=== PATIENT | male | born 1955 | race Caucasian/White ===

== ENCOUNTER 2021-11-15 14:27 | Outpatient (CLI) | payer BC, MEDICARE, SELFPAY ==
[2021-11-15 18:10] LABS: SARS PCR* POSITIVE SARS-CoV-2 (Negative)
== END 2021-11-15 14:28 | disposition home or self-care (01) ==
LOC: LONREF 14:28
PROVIDERS: PCP Family Medicine; Visit Provider Nurse Practitioner Family
DX: U07.1 COVID-19 (principal); R09.81 Nasal congestion
CPT/HCPCS: 87635

== ENCOUNTER 2022-02-01 10:19 | Emergency (ER) | payer BC, SELFPAY ==
[2022-02-01 10:33] VITALS: BP 168/81; PULSE 63; RESP 18; TEMP 36.5; O2SAT 97; BMI 30.1
--- NOTE | 2022-02-01 11:19 | ED_ITS ---
HPI - Back Pain/Injury General Chief Complaint: Back Injury/Pain Stated Complaint: Low back pain 67-year-old man Time Seen by Provider: 02/01/22 11:17 History of Present Illness HPI Narrative: 67-year-old man presenting to the emergency department with complaint of increasing low back and right leg pain. Seems to have started about 2 weeks ago and has just been getting worse. Over the last 3 nights really has been having a hard time sleeping. Is not actually having any weakness although it may be related to pain he admits. Still very active physically in was 2 weeks ago cutting wood or some other act to VD is that he thinks might have been related but does not recall a specific injury at that time but it seemed to build after that. He describes a deep ache with initial onset also large area likely to ?ball of fire? in his right thigh and then numbness from the knee down. The numbness has resolved. He says his whole foot seemed to be involved. The deep ache persists through the buttock and posterior thigh and then I think somewhat in the outer lower leg. He also has some low back pain. Did not historically have a problem with back pain. From last clinic note-- Active Problems Medical Problems: Clostridium difficile colitis ASCVD (arteriosclerotic cardiovascular disease) Hypothyroidism Hyperlipidemia Diverticulosis COPD (chronic obstructive pulmonary disease) Adenomatous colon polyp Memory changes COPD exacerbation COPD with exacerbation Heart palpitations Surgical Problems: S/P CABG x 3 S/P left knee surgery S/P right knee arthroscopy S/P bilateral inguinal hernia repair Achilles rupture, left History of colonoscopy Colonoscopy completed on 04/15/18, Repeat in 3 years, Next due 04/15/2021 Related Data Home Medications Medication Instructions Recorded Confirmed atorvastatin 40 mg tablet 40 mg PO QPM 11/15/21 11/15/21 levothyroxine 75 mcg tablet 75 mcg PO QDAY 11/15/21 11/15/21 metoprolol succinate 25 mg 12.5 mg PO QDAY 11/15/21 11/15/21 tablet,extended release 24 hr Previous Rx's Medication Instructions Recorded nirmatrelvir 300 mg (150 mg See Rx Instructions PO .COMPLEX 11/15/21 x2)-ritonavir 100 mg tablet,dose #30 tabs pack(EUA) prednisone 20 mg tablet 40 mg PO QDAY #10 tabs 11/15/21 Allergies Allergy/AdvReac Type Severity Reaction Status Date / Time No Known Drug Allergies Allergy Verified 11/15/21 14:16 Review of Systems Status of ROS: Reports: 6 or more systems reviewed and unremarkable except as noted in History and below [facility] Social History Smoking Status: Former smoker Do you use any of these nicotine containing products: None Second hand tobacco smoke exposure: No How often do you have a drink containing alcohol: never How often do you have six or more drinks on one occasion: Never AUDIT-C Alcohol total score: 0 Non-prescribed substance use: denies use Exam Narrative: Exam Narrative: New pleasant, jovial. Clearly a little uncomfortable seated in a chair though avoiding sitting on his right buttock. Skin is warm and dry, no evidence of rash. No swelling appreciated. He transitions gingerly to a standing position. Examination of the back does reveal some right sacroiliac area tenderness. At times when he was seated he seems preferring to cross his right leg over his left as if that offers a little release. There was actually with further pressure on the right SI joint some improvement in symptoms there. Sensation intact. Is sore to palpation in the right buttock as well. Positive straight leg raise on the right. No discrete weakness appreciated with intact reflexes. Const: Vital Signs, click to edit/add: Vital Signs - 24 hr 02/01/22 10:33 Temperature 97.7 F Pulse Rate [Right Pulse Oximeter] 63 Respiratory Rate 18 Blood Pressure [Ri ght Upper Arm] 168/81 H Pulse Oximetry 97 Oxygen Delivery Me thod Room Air Documenting provider has reviewed patient's vital signs: yes Course Vital Signs Vital signs: Initial Vital Signs Temperature 97.7 F 02/01/22 10:33 Temperature Source Temporal Artery Scan 02/01/22 10:33 Pulse Rate 63 02/01/22 10:33 Respiratory Rate 18 02/01/22 10:33 Blood Pressure 168/81 H 02/01/22 10:33 Blood Pressure Mean 110 02/01/22 10:33 Blood Pressure Position Sitting 02/01/22 10:33 Pulse Oximetry 97 02/01/22 10:33 Oxygen Delivery Method 02/01/22 10:33 Vital Signs Temperature 97.7 F 02/01/22 10:33 Pulse Rate 63 02/01/22 10:33 Respiratory Rate 18 02/01/22 10:33 Blood Pressure 168/81 H 02/01/22 10:33 Pulse Oximetry 97 02/01/22 10:33 Oxygen Delivery Method 02/01/22 10:33 Temperature 97.7 F 02/01/22 10:33 Pulse Rate 63 02/01/22 10:33 Respiratory Rate 18 02/01/22 10:33 Blood Pressure 168/81 H 02/01/22 10:33 Pulse Oximetry 97 02/01/22 10:33 Oxygen Delivery Method 02/01/22 10:33 MDM - Back Pain/Injury MDM Narrative Medical decision making narrative: It appears to have some radicular back pain possible disc herniation versus sciatica and then I think some right sacroiliac joint involvement probably from overuse of left leg in compensation recently. I did go over medical illustrations with him discussing likely etiology and diff erential. Discharge Plan Discharge Clinical Impression: Radicular low back pain, Sacroiliac pain Patient Disposition: Home, Self-Care Condition: Stable Additional Instructions: See handout for stretches. Schedule follow-up with Dr. Boggs in about a week. Can take temporarily and with a little food up to 800 mg of ibuprofen per dose or alternatively up to 500 mg of naproxen 2 times daily. Can continue with acetaminophen which can be combined with either of these 2. Remember each tablet of Slaughters has 325 mg of acetaminophen in it and your maximum singular dosing of acetaminophen is 1000 mg. Take the prednisone as 60 mg daily for 3 days, 40 mg daily for 4 days then 20 mg daily for 3 days Also Slaughters and Flexeril from [employer]. The Flexeril/cyclobenzaprine can be a little sedating and so can help relax muscles but is not directly a muscle relaxer. Be seen for marked increase in persistent pain, new weakness absent of apparent pain association. Prescriptions: No Action atorvastatin 40 mg tablet 40 mg PO QPM levothyroxine 75 mcg tablet 75 mcg PO QDAY metoprolol succinate 25 mg tablet extended release 24 hr 12.5 mg PO QDAY nirmatrelvir-ritonavir 300 mg (150 mg x 2)-100 mg tablets,dose pack See Rx Instructions PO .COMPLEX Qty: 30 0RF Rx Instructions: take TWO 150 mg tablets of nirmatrelvir with ONE 100 mg tablet of ritonavir twice daily for 5 days PO prednisone 20 mg tablet 40 mg PO QDAY Qty: 10 0RF Follow Up/Referrals: Altaf Hernandez MD [Primary Care Provider] - Stand Alone Forms: [employer] Info Instructions
== END 2022-02-01 12:04 | disposition home or self-care (01) ==
LOC: ED 12:03
PROVIDERS: Emergency Provider Family Medicine; PCP Family Medicine
DX: M54.16 Radiculopathy, lumbar region (principal); M53.3 Sacrococcygeal disorders, not elsewhere classified
CPT/HCPCS: 99282; 99283

== ENCOUNTER 2022-05-20 20:39 | Outpatient (CLI) | payer BC, MEDICARE, SELFPAY | END 2022-05-20 20:40 | disposition home or self-care (01) | LOC: AMB 06-01 12:06 | PROVIDERS: PCP Family Medicine; Visit Provider Emergency Medicine Emergency Medical Services | DX: R07.89 Other chest pain (principal); R06.02 Shortness of breath | CPT/HCPCS: A0425; A0427 ==

== ENCOUNTER 2022-05-20 21:26 | Emergency (ER) | payer BC, MEDICARE, SELFPAY ==
[2022-05-20] VITALS (22 sets, daily range): BP systolic 101–126; BP diastolic 61–91; PULSE 57–74; RESP 20; TEMP 36.6; O2SAT 90–97; BMI 30.1
[2022-05-20 21:58] LABS: Troponin, Point-of-Care* 0.01 ng/ml (0.01-0.04)
--- NOTE | 2022-05-20 22:15 | ED.GENADULT ---
HPI - General Adult General Chief complaint: Shortness of Breath/Dyspnea Stated complaint: shortness of breath Time Seen by Provider: 05/20/22 21:36 History of Present Illness HPI narrative: This 67-year-old male comes in reporting what he thought was heartburn that started prior to arrival. He does have a history of coronary artery bypass 5 years ago. He has been doing well since then. He was out working with rather strenuous activity and tolerated this today as he has in other days past. When he came inside he was cold and got warmed up in the tub. He began to have heartburn symptoms with some nausea but no vomiting. He did not have diaphoresis. He does report some shortness of breath. He did not have any lightheadedness. He did take Tums without any relief. He comes in for evaluation of his heart and states that symptoms he has today seemed possibly similar to what was there before he had his coronary artery bypass grafting surgery. He did receive nitroglycerin EN route here and this brought some rather immediate relief to his symptoms. Currently does not have any chest pain. He also received aspirin 324 mg. Related Data Home Medications Medication Instructions Recorded Confirmed atorvastatin 40 mg tablet 40 mg PO QPM 11/15/21 05/20/22 levothyroxine 75 mcg tablet 75 mcg PO QDAY 11/15/21 05/20/22 metoprolol succinate 25 mg 12.5 mg PO QDAY 11/15/21 05/20/22 tablet,extended release 24 hr albuterol sulfate 90 mcg/actuation inhalation 05/20/22 aerosol inhaler fluticasone fur. 100 mcg-umeclid inhalation 05/20/22 62.5 mcg-vilant 25 mcg inhalat.powder (Trelegy Ellipta) Allergies Allergy/AdvReac Type Severity Reaction Status Date / Time No Known Drug Allergies Allergy Verified 05/20/22 21:44 Review of Systems Status of ROS: Reports: 10 or more systems reviewed and unremarkable except as noted in History and below Narrative: Constitutional: No fevers, no weight gain or loss. Eyes: No discharge. No vision changes. HENT: No congestion, no sore throat, no ear pain. Cardiovascular: No palpitations. Chest discomfort as described above. Respiratory: No wheezes, no cough. He feels that his breathing is somewhat tight. Gastrointestinal: No abdominal pain, no vomiting, no diarrhea. Genitourinary: No dysuria, no hematuria. Musculoskeletal: Normal range of motion. Skin: No rashes, no pruritis. Neurological: No dizziness, weakness, sensory change, speech change. Endo/Heme/Allergies: No bruising or bleeding. No polydipsia. Pysch: no suicidality, no anxiety, no insomnia. All other systems reviewed and are negative. [facility] Medical History Clostridium difficile colitis (04/10/11) Surgical History History of colonoscopy Status post arthroscopy of right knee Status post bilateral inguinal hernia repair Status post left knee surgery Status post three vessel coronary artery bypass Social History Smoking Status: Never smoker Do you use any of these nicotine containing products: None Second hand tobacco smoke exposure: No How often do you have a drink containing alcohol: never How often do you have six or more drinks on one occasion: Never AUDIT-C Alcohol total score: 0 Non-prescribed substance use: denies use Exam Narrative: Exam Narrative: Constitutional: Well-developed, well-nourished, no acute distress. HEENT: Normocephalic, atraumatic. Neck: Normal range of motion. Nontender. Supple. Heart: Regular. No murmurs. Normal rate. Intact distal pulses. Lungs: Clear to auscultation. No chest discomfort. No wheezes, rhonchi, or rales. Abdomen: Normal bowel sounds. Nontender. No rebound tenderness. Genitalia: Deferred. Back: No midline tenderness. Normal range of motion. Extremities: Normal range of motion. No injury. Skin: Intact. No rash. Warm. No erythema or pallor. Neurologic: No altered sensation. No weakness. Alert and oriented. Psychiatric: No suicidality. No anxiety or depression. No insomnia. Nursing notes and vitals signs are reviewed. Const: Vital Signs, click to edit/add: Vital Signs - 24 hr 05/20/22 21:38 05/20/22 21:57 05/20/22 22:00 Temperature 98 F Pulse Rate 61 70 Respiratory Rate 20 Blood Pressure Pulse Oximetry 93 91 91 Oxygen Delivery Me thod Room Air 05/20/22 22:02 05/20/22 22:03 05/20/22 22:15 Temperature Pulse Rate 74 70 65 Respiratory Rate Blood Pressure 117/81 Pulse Oximetry 92 91 90 Oxygen Delivery Me thod 05/20/22 22:16 Temperature Pulse Rate 66 Respiratory Rate Blood Pressure 119/69 Pulse Oximetry 90 Oxygen Delivery Me thod Course Vital Signs Vital signs: Initial Vital Signs Temperature 98 F 05/20/22 21:38 Temperature Source Temporal Artery Scan 05/20/22 21:38 Pulse Rhythm 05/20/22 21:38 Pulse Strength 3+ Normal 05/20/22 21:38 Respiratory Rate 20 05/20/22 21:38 Blood Pressure Position Semi-Fowlers 05/20/22 21:38 Pulse Oximetry 93 05/20/22 21:38 Oxygen Delivery Method 05/20/22 21:38 Vital Signs Temperature 98 F 05/20/22 21:38 Respiratory Rate 20 05/20/22 21:38 Pulse Oximetry 93 05/20/22 21:38 Oxygen Delivery Method 05/20/22 21:38 Temperature 98 F 05/20/22 21:38 Pulse Rate 66 05/20/22 22:16 Respiratory Rate 20 05/20/22 21:38 Blood Pressure 119/69 05/20/22 22:16 Pulse Oximetry 90 05/20/22 22:16 Oxygen Delivery Method 05/20/22 21:38 Medical Decision Making MDM Narrative Medical decision making narrative: This 67-year-old male comes in because of chest pain that came on after rather heavy exertion outside just prior to arrival. He states that he has use to strenuous activity and has not had any symptoms. Today however he thought he was having heartburn afterwards but decided to come in for evaluation. He did receive nitroglycerin and baby aspirin in route here and his symptoms improved rather quickly thereafter. Currently he is not having any chest discomfort but he does feel like his breathing is tight. He does have oximetry at 97% on room air. Initial EKG and troponin are reassuring. His EKG shows normal sinus rhythm without ST or T-wave abnormalities. His troponin returns in normal range also. At the end of my shift there is pending repeat troponin result. Additionally there is results of testing for COVID, influenza, and RSV along the chest x-ray. The overnight physician will look after these results. Assuming that they will return in normal range the patient will be okay to be discharged home to continue current plans and follow-up with his primary physician. Lab Data Labs: Lab Results 05/20/22 05/20/22 05/20/22 Range/Units 21:51 22:55 22:55 WBC 10.16 (4.50-11.00) K/uL RBC 4.89 (4.30-5.90) m/uL Hgb 14.5 (13.5-17.5) gm/dL Hct 43.1 (37.0-53.0) % MCV 88 (80-100) fL MCH 30 (26-34) pg MCHC 34 (32-36) gm/dL RDW Coeff of Yannick 13.2 (11.5-15.5) % Plt Count 259 (140-440) K/uL Neut % (Auto) 76.8 H (42.0-72.0) % Lymph % (Auto) 11.4 L (20-44) % [place] % (Auto) 8.2 (0.0-11.0) % Eos % (Auto) 2.8 (0.0-7.0) % Baso % (Auto) 0.1 (0.0-3.0) % Neut # (Auto) 7.80 H (1.7-7.0) K/uL Lymph # (Auto) 1.20 (0.90-2.90) K/uL [place] # (Auto) 0.80 (0.00-0.90) K/UL Eos # (Auto) 0.28 (0.00-0.50) K/uL Baso # (Auto) 0.01 (0.00-0.30) K/uL Sodium 139 (135-149) mmol/L Potassium 4.0 (3.6-5.1) mmol/L Chloride 106 (96-114) mmol/L Carbon Dioxide 25 (20-32) mmol/L BUN 18 (7-30) mg/dL Creatinine 0.8 (0.5-1.5) mg/dL Estimated Creat Clear 75.03 Estimated GFR 98 ml/min Glucose 107 (60-115) mg/dL Calcium 8.8 (8.4-10.6) mg/dL Troponin I < 0.01 L (0.01-0.04) ng/mL POC Troponin I 0.01 (0.01-0.04) ng/ml ECG Data Attestation: I personally reviewed and interpreted this ECG as follows: Interpretation: Sinus rhythm with occasional PVCs. Rate is 72 beats per minute. There is a right bundle branch block. There are no specific ST or T-wave abnormalities. Discharge Plan Discharge Clinical Impression: Chest pain Patient Disposition: Home, Self-Care Condition: Improved Additional Instructions: Continue current plans. Return to emergency department if symptoms are recurrent. Activity as tolerated. Follow up with primary physician or felled seam operator chainstitch for review of medications and plans going forward. Prescriptions: No Action atorvastatin 40 mg tablet 40 mg PO QPM levothyroxine 75 mcg tablet 75 mcg PO QDAY metoprolol succinate 25 mg tablet extended release 24 hr 12.5 mg PO QDAY albuterol sulfate 90 mcg/actuation HFA aerosol inhaler INHALATION Label Comments: INHALE 2 PUFFS BY MOUTH EVERY 4 TO 6 HOURS NEEDED Trelegy Ellipta 100-62.5-25 mcg blister with device INHALATION Label Comments: INHALE 1 PUFF BY MOUTH AT THE SAME TIME EVERY DAY Follow Up/Referrals: Altaf Hernandez MD [Primary Care Provider] - Stand Alone Forms: [employer] Info Instructions
[2022-05-20 23:20] LABS: Chloride* 106 mmol/L (96-114); Sodium* 139 mmol/L (135-149)
[2022-05-20 23:23] LABS: Blood Urea Nitrogen* 18 mg/dL (7-30); Carbon Dioxide* 25 mmol/L (20-32); Creatinine* 0.8 mg/dL (0.5-1.5); Est. Creatinine Clearance* 75.03; Estimated Glomerular Filt Rate 98 ml/min; Glucose* 107 mg/dL (60-115)
[2022-05-20 23:24] LABS: Calcium* 8.8 mg/dL (8.4-10.6)
[2022-05-20 23:35] LABS: Basophils Absolute Auto 0.01 K/uL (0.00-0.30); Basophils Percent Auto 0.1 % (0.0-3.0); Eosinophils Absolute Auto 0.28 K/uL (0.00-0.50); Eosinophils Percent Auto 2.8 % (0.0-7.0); Hematocrit 43.1 % (37.0-53.0); Hemoglobin* 14.5 gm/dL (13.5-17.5); Immature Granulocytes Abs Auto 0.07 K/uL (0.00-0.30); Immature Granulocytes Pct Auto 0.7 %; Lymphocytes Percent Auto 11.4 % (20-44); Mean Corpuscular HGB Conc 34 gm/dL (32-36); Mean Corpuscular Hemoglobin 30 pg (26-34); Mean Corpuscular Volume 88 fL (80-100); Monocytes Percent Auto 8.2 % (0.0-11.0); Neutrophils Percent Auto 76.8 % (42.0-72.0); Platelet Count* 259 K/uL (140-440); RDW Coefficient of Variation % 13.2 % (11.5-15.5); Red Blood Count 4.89 m/uL (4.30-5.90); White Blood Count* 10.16 K/uL (4.50-11.00)
[2022-05-20 23:37] LABS: Slide Review Reflex No
[2022-05-20 23:38] LABS: Troponin I* < 0.01 ng/mL (0.01-0.04)
--- NOTE | 2022-05-20 23:42 | CRLHL7_ITS ---
For Patients: As a result of the Century Cures Act, medical imaging exams and procedure reports are released immediately into your electronic medical record. You may view this report before your referring provider. If you have questions, please contact your health care provider. INDICATION: Shortness breath. TECHNIQUE: Chest 2 view. COMPARISON: 05/08/2020. FINDINGS: Cardiovascular and mediastinum: Heart size and vasculature are normal in caliber and appearance. Median sternotomy wires, unchanged. Lungs and pleural spaces: Lungs are clear. No sign of infiltrate or mass. No sign of pleural effusion. No pneumothorax. Bones and soft tissues: No significant findings. IMPRESSION: No acute abnormality or significant interval change. Dictated by Mihai Cisse MD @ 05/21/2022 12:28:28 AM (Electronically Signed)
[2022-05-21] VITALS (11 sets, daily range): BP systolic 122–157; BP diastolic 73–86; PULSE 61–64; RESP 20; O2SAT 93–96
[2022-05-21 00:31] LABS: PCR FLU A Negative PCR FLU A (Negative); PCR FLU B Negative PCR FLU B (Negative); PCR RSV Negative PCR RSV (Negative)
[2022-05-21] MEDS: FAMOTIDINE 20 MG TABLET PO (00:36)
[2022-05-21] MEDS: GI COCKTAIL (VISC LIDO/ANTACID) 30 ML PO (00:41)
[2022-05-21 00:48] LABS: SARS PCR* Negative SARS-CoV-2 (Negative)
[2022-05-21 00:51] LABS: Troponin I* < 0.01 ng/mL (0.01-0.04)
== END 2022-05-21 01:25 | disposition home or self-care (01) ==
PROVIDERS: Emergency Provider Emergency Medicine Emergency Medical Services; PCP Family Medicine
DX: R07.9 Chest pain, unspecified (principal)
CPT/HCPCS: 36415; 71046; 80048; 84484; 85025; 87502; 87634; 87635; 93005; 99284; 99285; A9270

== ENCOUNTER 2022-05-29 08:30 | Outpatient (CLI) | payer BC, MEDICARE, SELFPAY | END 2022-05-29 08:31 | disposition home or self-care (01) | PROVIDERS: PCP Family Medicine; Visit Provider Surgery | DX: Z12.11 Encounter for screening for malignant neoplasm of colon (principal); K63.5 Polyp of colon; K62.89 Other specified diseases of anus and rectum; K57.30 Diverticulosis of large intestine without perforation or abscess without bleeding; Z86.010 Personal history of colon polyps | CPT/HCPCS: 45385; 88305; J1200; J2250; J3010 ==

== ENCOUNTER 2022-09-29 07:54 | Outpatient (CLI) | payer BC, MEDICARE, SELFPAY | END 2022-09-29 07:55 | disposition home or self-care (01) | PROVIDERS: PCP Family Medicine; Visit Provider Family Medicine | DX: E78.5 Hyperlipidemia, unspecified (principal); E03.9 Hypothyroidism, unspecified; I25.10 Atherosclerotic heart disease of native coronary artery without angina pectoris; Z13.1 Encounter for screening for diabetes mellitus | CPT/HCPCS: 80048; 80061; 84443 ==

== ENCOUNTER 2022-10-14 13:18 | Outpatient (CLI) | payer BC, MEDICARE, SELFPAY ==
[2022-10-14 14:50] VITALS: BP 132/76; PULSE 67; RESP 18
--- NOTE | 2022-10-14 18:42 | P.STN_ITS ---
Stress Test Note Date Date Seen: 10/14/22 Date of test: 10/14/22 Providers Primary care provider: Altaf Hernandez Stress test physician: Yolanda Liz Stress Test Note Stress test ordered: Stress Echo Indication for test: Coronary artery disease, status post CABG 2017 Stress test medicine: None Results discussion: Resting EKG: Sinus rhythm 62 beats per minute. Right bundle branch block. Q- wave lead 3. Resting blood pressure: 120/90 Stress test: Patient exercised on the treadmill following standard Madi protocol. He exercised to 8 minutes 35 seconds needing to stop due to dyspnea/shortness of breath. He did not have any chest pain, just could not tolerate further exercise. At that level of exercise he had an equivalent of 10.3 Mets. His maximum heart rate only got 221 beats per minute which was 92% of a target heart rate that was calculated to be 131. Patient states he did hold his metoprolol for 24 hours prior to this test. He had a maximum blood pressure 164/80 giving him a rate pressure product of 19,844. Occasional PVC was seen with this patient, some sinus arrhythmia was seen with this patient in recovery but no rhythm disturbances. There was no significant PVC burden that I saw. Did not see any definitive ST segment changes of ischemia. Impression: Suboptimal test due to inability to get to target heart rate, no significant subjective symptoms or EKG objective symptoms at below target heart rate. Follow up suggested: We will await the echo images. Patient's primary care provider may need to consider further testing if there is a strong clinical suspicion. Recommend talking to Cardiology if further testing is warranted.
== END 2022-10-14 13:19 | disposition home or self-care (01) ==
LOC: STRESS 13:19
PROVIDERS: PCP Family Medicine; Visit Provider Family Medicine
DX: I25.10 Atherosclerotic heart disease of native coronary artery without angina pectoris (principal)
CPT/HCPCS: 93016; 93325; 93351

== ENCOUNTER 2023-10-09 09:06 | Outpatient (CLI) | payer BC, MEDICARE, SELFPAY | END 2023-10-09 09:07 | disposition home or self-care (01) | PROVIDERS: PCP Family Medicine; Visit Provider Family Medicine | DX: E78.5 Hyperlipidemia, unspecified (principal); E03.9 Hypothyroidism, unspecified; D12.6 Benign neoplasm of colon, unspecified; I25.10 Atherosclerotic heart disease of native coronary artery without angina pectoris; Z13.0 Encounter for screening for diseases of the blood and blood-forming organs and certain disorders involving the immune mechanism | CPT/HCPCS: 80048; 80061; 84439; 84443; G0103 ==

== ENCOUNTER 2023-12-23 09:47 | Outpatient (CLI) | payer BC, MEDICARE, SELFPAY | END 2023-12-23 09:48 | disposition home or self-care (01) | LOC: NFLDREF 12-27 06:10 | PROVIDERS: PCP Family Medicine; Referring Provider Family Medicine; Visit Provider Family Medicine | DX: B35.1 Tinea unguium (principal); Z79.899 Other long term (current) drug therapy | CPT/HCPCS: 80076 ==

== ENCOUNTER 2024-03-01 12:36 | Outpatient (CLI) | payer BC, MEDICARE, SELFPAY ==
[2024-03-01] MEDS: DOBUTamine 250 MG in 5 % DEXTROSE 250 ML 230 ML 53.4 MG IVPB (13:42)
[2024-03-01] MEDS: ATROPINE 1 MG/10 ML SYRINGE IVP ×4 (13:49→13:54)
[2024-03-01 14:48] VITALS: BP 132/69; PULSE 96; RESP 16
--- NOTE | 2024-03-01 15:05 | W.PM.STED ---
Stress Test Note Date Date of test: 03/01/24 Providers Primary care provider: Altaf Hernandez Stress test physician: Surya Anguiano Stress Test Note Stress test ordered: Dobutamine Echo Indication for test: Chest pain, previous 3 vessel bypass 2016 Stress test medicine: Dobutamine Results discussion: This pleasant gentleman presents for the above test after discussion the risks benefits and side effects he would like to proceed, pretest EKG shows the incomplete right bundle branch block configuration, with normal sinus rhythm with occasional PACs are noted. Standard dobutamine infusion is done up to 40 micrograms/minute, this is supplemented with a total of 0.9 mg of atropine, to get him to target heart rate. Total duration of pharmacologic protocol was 14 minutes and 55 seconds, achieved a metabolic equivalent of 1 Mets. His maximum heart rate was 135, which is 104% of the target, post tracing there is no appreciable ST wave changes suggestive of ischemia, he had occasional PVCs notable in the recovery. But was asymptomatic with this, overall subjectively negative also. Impression: Negative electrographic portion of dobutamine echo, subjectively negative Follow up suggested: Await echo images which should be reviewed by Cardiology, clinical correlation with these will be needed, patient left this testing facility back to baseline in good condition there were no complication
== END 2024-03-01 14:11 | disposition home or self-care (01) ==
PROVIDERS: PCP Family Medicine; Visit Provider Family Medicine
DX: R07.9 Chest pain, unspecified (principal)
CPT/HCPCS: 93016; 93325; 93351; J0461; J1250; J7050

== ENCOUNTER 2024-06-13 09:00 | Outpatient (RCR) | payer BC, MEDICARE, SELFPAY | END 2024-10-11 13:55 | disposition home or self-care (01) | PROVIDERS: PCP Family Medicine; Visit Provider Physician Assistant | DX: M25.512 Pain in left shoulder (principal); Z51.89 Encounter for other specified aftercare | CPT/HCPCS: 97110; 97140; 97161 ==

== ENCOUNTER 2025-01-11 11:29 | Outpatient (CLI) | payer BC, MEDICARE, SELFPAY | END 2025-01-11 11:30 | disposition home or self-care (01) | PROVIDERS: PCP Family Medicine; Visit Provider Family Medicine | DX: E78.2 Mixed hyperlipidemia (principal); I25.10 Atherosclerotic heart disease of native coronary artery without angina pectoris; E03.9 Hypothyroidism, unspecified | CPT/HCPCS: 80048; 80061; 84443 ==